=== PATIENT | male | born 1965 | race African-American/Black ===

== ENCOUNTER 2016-09-08 10:11 | Inpatient (IN) | payer OTHER ==
[2016-09-08 10:33] VITALS: BMI 27.6
--- NOTE | 2016-09-08 13:32 | HP ---
COWS - Scale Resting Pulse: 1= [place] 81-100 Sweatin=Flushed/Facial Moisture Restless Observation: 3= Extraneous Movement Pupil Size: 2= Moderately Dilated Bone or Joint Aches: 2= Severe Diffuse Aches Runny Nose/ Eye Tearin= Runny Nose/Eyes GI Upset > 30mins: 3= Vomiting/Diarrhea Tremor Observation: 2= Slight Tremor Visible Yawning Observation: 2= >3x During Session Anxiety or Irritability: 2=Irritable/Anxious Goose Flesh Skin: 0=Smooth Skin COWS Score: 21 CIWA Score - CIWA Score Nausea/Vomitin Muscle Tremors: 3 Anxiety: 3 Agitation: 2 Paroxysmal Sweats: 2 Orientation: 0-Oriented Tacttile Disturbances: 2-Mild Itch/Numbness/Burn Auditory Disturbances: 2-Mild Harshness/Frighten Visual Disturbances: 2-Mild Sensitivity Headache: 2-Mild CIWA-Ar Total Score: 21 Admission ROS BHS - HPI Chief Complaint: I NEED HELP TO STOP USING HEROIN,ALCOHOL AND XANAX Allergies/Adverse Reactions: Allergies Allergy/AdvReac Type Severity Reaction Status Date / Time No Known Allergies Allergy Verified 09/08/16 11:29 History of Present Illness: THIS 51 YEARS OLD MALE WITH HEROIN,ALCOHOL AND XANAX DEPENDENCE,WITHDRAWAL SYMPTOM,LAST DETOX [facility] 4 YEARS AGO SEVERAL ADMISSIONS IN DETOX LONGEST PERIOD 2 YEARS HEPATITIS C 2010 TREATED NICOTINE DEPENDENCE Exam Limitations: No Limitations - Ebola screening Have you traveled outside of the country in the last 21 days: No Have you been sick,other than usual withdrawal symptoms: No - Review of Systems Constitutional: Chills, Diaphoresis, Loss of Appetite, Malaise, Night Sweats, Changes in sleep, Weakness, Unintentional Wgt. Loss EENT: reports: Tearing, Nose Congestion Respiratory: reports: No Symptoms reported Cardiac: reports: Palpitations GI: reports: Diarrhea, Nausea, Vomiting, Abdominal cramping : reports: No Symptoms Reported Musculoskeletal: reports: Back Pain, Joint Pain, Muscle Pain, Joint Stiffness Integumentary: reports: Dryness Neuro: reports: Headache, Tremors Endocrine: reports: No Symptoms Reported Hematology: reports: No Symptoms Reported Psychiatric: reports: No Sypmtoms Reported, Judgement Intact, Mood/Affect Appropiate, Orientated x3, Depressed Patient History - Patient Medical History Hx Anemia: No Hx Asthma: No Hx Chronic Obstructive Pulmonary Disease (COPD): No Hx Cancer: No Hx Cardiac Disorders: No Hx Congestive Heart Failure: No Hx Hypertension: No Hx Hypercholesterolemia: No HX Cerebrovascular Accident: No Hx Seizures: No Hx Dementia: No Hx Diabetes: No Hx Gastrointestinal Disorders: No Hx Liver Disease: No Hx Genitourinary Disorders: No Hx Sexually Transmitted Disorders: No Hx Renal Disease (ESRD): No Hx Thyroid Disease: No Hx Human Immunodeficiency Virus (HIV): No (LAST 2014 NEGATIVE) Hx Hepatitis C: Yes (TREATED SINCE 2009) Hx Depression: Yes Hx Suicide Attempt: Yes (cut left wrist in 2013) Hx Bipolar Disorder: No Hx Schizophrenia: No Other Medical History: NO SUICIDAL,NO HOMICIDAL - Patient Surgical History Past Surgical History: No Hx Neurologic Surgery: No Hx Cataract Extraction: No Hx Cardiac Surgery: No Hx Lung Surgery: No Hx Breast Surgery: No Hx Breast Biopsy: No Hx Abdominal Surgery: No Hx Appendectomy: No Hx Cholecystectomy: No Hx Genitourinary Surgery: No Hx Section: No Hx Orthopedic Surgery: No Anesthesia Reaction: No - PPD History Previous Implant?: Yes Documented Results: Negative w/o proof Implanted On Prior [facility] Admission?: No PPD to be Administered?: Yes - Smoking Cessation Smoking history: Current every day smoker Have you smoked in the past 12 months: Yes Aproximately how many cigarettes per day: 10 Hx Chewing Tobacco Use: No Initiated information on smoking cessation: Yes 'Breaking Loose' booklet given: 09/08/16 - Substance & Tx. History Hx Alcohol Use: Yes Hx Substance Use: Yes Substance Use Type: Alcohol, Cocaine, Heroin Hx Substance Use Treatment: Yes (2012 [facility]) - Substances Abused Heroin Route: Injection Frequency: Daily Amount used: 50 bags Age of first use: 10 Date of Last Use: 09/07/16 Alcohol-akbar Route: Oral Frequency: Daily Amount used: 1 pt. Age of first use: 13 Date of Last Use: 09/07/16 Xanax or Klonopin Route: Oral Frequency: Daily Amount used: 2 mg. Age of first use: 49 Date of Last Use: 09/07/16 Fentanyl patch Route: patch Frequency: 1-3 times last 30 days Amount used: 75 mg. Age of first use: 49 Date of Last Use: 09/01/16 Family Disease History - Family Disease History Family History: Denies Admission Physical Exam BHS - Vital Signs Vital Signs: Vital Signs - 24 hr 09/08/16 10:29 Temperature 97 F L Pulse Rate 84 Respiratory 20 Rate Blood Pressure 148/90 - Physical General Appearance: Yes: Moderate Distress, Tremorous, Irritable, Sweating, Anxious HEENTM: Yes: Normal ENT Inspection, Pharynx Normal, Nasal Congestion Respiratory: Yes: Lungs Clear, Normal Breath Sounds, No Respiratory Distress Neck: Yes: Supple, Trachea in good position Breast: Yes: Within Normal Limits Cardiology: Yes: Within Normal Limits, Regular Rhythm, Regular Rate, S1, S2 Abdominal: Yes: Normal Bowel Sounds, Non Tender, Flat, Soft, Pulsatile Mass Genitourinary: Yes: Within Normal Limits Musculoskeletal: Yes: Back pain, Joint Stiffness, Muscle Pain Extremities: Yes: Within Normal Limits, Normal Range of Motion, Tremors Neurological: Yes: feed management advisor II-XII NML intact, Fully Oriented, Alert, Motor Strength 5/5 Integumentary: Yes: Dry, Track Davis Lymphatic: Yes: Within Normal Limits - Diagnostic (1) Opioid dependence with withdrawal Current Visit: Yes Status: Acute (2) Alcohol dependence with uncomplicated withdrawal Current Visit: Yes Status: Acute (3) Uncomplicated sedative, hypnotic or anxiolytic withdrawal Current Visit: Yes Status: Acute (4) Nicotine dependence Current Visit: Yes Status: Acute (5) Weight loss Current Visit: Yes Status: Acute (6) Hepatitis C Current Visit: Yes Status: Acute Cleared for Admission [facility] - Detox or Rehab [facility] Level of Care: Medically Managed Detox Regimen/Protocol: Methadone/Valium [facility] Breath Alcohol Content Breath Alcohol Content: 0 Urine Drug Screen - Results Drug Screen Negative: No Urine Drug Screen Results: OPI-Opiates, OXY-Oxycodone
[2016-09-08] MEDS ORDERED: MAGNESIUM CITRATE 300 ML BOTTLE PO PRN (14:02)
[2016-09-08] MEDS ORDERED: LOPERAMIDE HCL 2 MG CAPSULE PO PRN (14:02)
[2016-09-08] MEDS ORDERED: diphenhydrAMINE HCL 50 MG CAPSULE PO PRN (14:02)
[2016-09-08] MEDS ORDERED: MAG HYDROX/AL HYDROX/SIMETH 30 ML UNIT-DOSE CUP PO PRN (14:02)
[2016-09-08] MEDS ORDERED: guaiFENesin/D-METHORPHAN HB 10 ML UNIT-DOSE CUPS PO PRN (14:02)
[2016-09-08] MEDS ORDERED: IBUPROFEN 400 MG TABLET (FP) PO PRN (14:02)
[2016-09-08] MEDS ORDERED: MAGNESIUM HYDROX 2400MG/30ML ORAL SUSPENSION 30 ML CUP PO PRN (14:02)
[2016-09-08] MEDS ORDERED: MENTHOL/PHENOL 1 EACH UD MM PRN (14:02)
[2016-09-08] MEDS ORDERED: P-EPHED 60MG/TRIPROLIDI 2.5MG TABLET PO PRN (14:02)
[2016-09-08] MEDS ORDERED: ACETAMINOPHEN 325 MG TABLET (FP) PO PRN (14:02)
[2016-09-08] MEDS ORDERED: diazePAM 5 MG TABLET PO ONE (14:46)
[2016-09-08] MEDS ORDERED: METHADONE HCL 10 MG TABLET (FOR DETOX USE ONLY) PO ONE ×2 (14:48→23:00)
[2016-09-08 14:53] LABS: HIV 1 & 2 AB NEGATIVE; HIV 1 AGp24 NEGATIVE
[2016-09-08] MEDS: NICOTINE 21 MG/24 HOURS TOPICAL PATCH TD SCH (14:56)
[2016-09-08] MEDS: diazePAM 5 MG TABLET PO PRN (17:46)
[2016-09-08 20:13] LABS: URINE APPEARANCE CLEAR; URINE BILIRUBIN NEGATIVE (NEGATIVE); URINE BLOOD NEGATIVE (NEGATIVE); URINE COLOR LTYELLOW; URINE GLUCOSE (UA) NEGATIVE (NEGATIVE); URINE KETONE NEGATIVE (NEGATIVE); URINE LEUK ESTERASE NEGATIVE (NEGATIVE); URINE NITRITE NEGATIVE (NEGATIVE); URINE PROTEIN NEGATIVE (NEGATIVE); URINE UROBILINOGEN NEGATIVE E.U./dl (0.2-1.0)
[2016-09-08] MEDS: diazePAM 5 MG TABLET PO SCH (22:10)
[2016-09-08] MEDS: cloNIDine HCL 0.1 MG TABLET PO SCH (22:10)
[2016-09-08] MEDS: THIAMINE HCL 100 MG TABLET (FP) PO SCH (22:10)
[2016-09-09] MEDS: diazePAM 5 MG TABLET PO SCH ×3 (05:22→22:22)
[2016-09-09] MEDS: CYCLOBENZAPRINE HCL 10 MG TABLET (FP) PO PRN ×2 (05:22→18:05)
[2016-09-09] MEDS: NICOTINE 21 MG/24 HOURS TOPICAL PATCH TD SCH (09:46)
[2016-09-09] MEDS: diazePAM 5 MG TABLET PO PRN ×2 (09:46→18:05)
[2016-09-09] MEDS: PRENATAL VITAMINS W/ FOLIC ACID TABLET (FP) PO SCH (09:46)
[2016-09-09] MEDS: cloNIDine HCL 0.1 MG TABLET PO SCH ×2 (09:46→22:22)
[2016-09-09] MEDS ORDERED: METHADONE HCL 10 MG TABLET (FOR DETOX USE ONLY) PO SCH ×2 (10:00)
[2016-09-09 10:36] LABS: MCH 30.8 pg (25.7-33.7); MCHC 33.8 g/dl (32.0-35.9); MEAN CELL VOLUME 91.1 fl (80-96); MEAN PLT VOLUME 8.4 fl (7.5-11.1); PLATELET COUNT 204 K/MM3 (134-434); RDW 16.2 % (11.9-15.9); WHITE BLOOD COUNT 7.1 K/mm3 (4.0-10.0)
[2016-09-09] MEDS ORDERED: ONDANSETRON *ODT* 4 MG TABLET SL PRN (11:53)
[2016-09-09 12:07] LABS: ALBUMIN 3.7 g/dl (3.4-5.0); ALK PHOS 91 U/L (45-117); ANION GAP 10 (8-16); BILIRUBIN,TOTAL 0.3 mg/dL (0.2-1.0); CALCIUM 8.7 mg/dL (8.5-10.1); CO2 25 mmol/L (21-32); CREATININE 1.1 mg/dL (0.7-1.3); GLUCOSE,RANDOM 132 mg/dL (74-106); SGOT/AST 16 U/L (15-37); SGPT/ALT 19 U/L (12-78); TOT PROT 7.5 g/dl (6.4-8.2)
--- NOTE | 2016-09-09 13:10 | CONSULT ---
[facility] Psychiatric Consult - Data Date of interview: 09/09/16 Admission source: [facility] Identifying data: First admission to [facility] for this 51 y/o male seeking detox treatment for heroin,cocaine,alcohol and benzodiazepine (xanax) dependence.Patient is single,a father of two,domiciled,unemployed and deprived of any source of income. Substance Abuse History: - Smoking Cessation. Smoking history: Current every day smoker. Have you smoked in the past 12 months: Yes. Aproximately how many cigarettes per day: 10. Hx Chewing Tobacco Use: No. Initiated information on smoking cessation: Yes. 'Breaking Loose' booklet given: 09/08/16. - Substance & Tx. History. Hx Alcohol Use: Yes. Hx Substance Use: Yes. Substance Use Type : Alcohol, Cocaine, Heroin. Hx Substance Use Treatment: Yes ([facility]) . - Substances Abused. Heroin. Route: Injection. Frequency: Daily. Amount used: 50 bags. Age of first use: 10. Date of Last Use: 09/07/16. Alcohol-akbar. Route: Oral. Frequency: Daily. Amount used: 1 pt. Age of first use: 13. Date of Last Use: 09/07/16. Xanax or Klonopin. Route: Oral. Frequency: Daily. Amount used: 2 mg. Age of first use: 49. Date of Last Use: 09/07/16. Fentanyl patch. Route: patch. Frequency: 1-3 times last 30 days. Amount used: 75 mg. Age of first use: 49. Date of Last Use: 04/10. Confirmed by patient. Medical History: History of liver disease (hepatitis C). Psychiatric History: History of 5-7 psychiatric hospitalizations as per self- report.Patient is a poor and indifferent historian." I don't know anything about my diagnosis.I don't remember my medications.I don't go to any clinic anyway.I have no idea of these things." Mr Johnson admits to a history of suicide attempt via self-mutilation (wrist-cutting). Physical/Sexual Abuse/Trauma History: Patient denies. Additional Comment: Urine Drug Screen Results: OPI-Opiates, OXY-Oxycodone.Noted. Mental Status Exam - Mental Status Exam Alert and Oriented to: Time, Place, Person Cognitive Function: Good Patient Appearance: Well Groomed Mood: Withdrawn Affect: Mood Congruent Patient Behavior: Cooperative (marginally cooperative) Speech Pattern: Clear Voice Loudness: Normal Thought Process: Goal Oriented Thought Disorder: Not Present Hallucinations: Denies Suicidal Ideation: Denies Homicidal Ideation: Denies Insight/Judgement: Poor Sleep: Fair Appetite: Good Muscle strength/Tone: Normal Gait/Station: Normal Psychiatric Findings - Problem List (Energy 1, 2,3) (1) Alcohol dependence with uncomplicated withdrawal Current Visit: Yes Status: Acute (2) Opioid dependence with withdrawal Current Visit: Yes Status: Acute (3) Uncomplicated sedative, hypnotic or anxiolytic withdrawal Current Visit: Yes Status: Acute (4) Nicotine dependence Current Visit: Yes Status: Acute (5) Substance induced mood disorder Current Visit: Yes Status: Acute (6) Hepatitis C Current Visit: Yes Status: Acute - Initial Treatment Plan Initial Treatment Plan: Psychoeducation.Detoxification.Observation.
--- NOTE | 2016-09-09 15:26 | PN ---
S CIWA - CIWA Score Nausea/Vomitin Muscle Tremors: 2 Anxiety: 2 Agitation: 1-Slight > Activity Paroxysmal Sweats: 3 Orientation: 1-Uncertain about Date Tacttile Disturbances: 2-Mild Itch/Numbness/Burn Auditory Disturbances: 2-Mild Harshness/Frighten Visual Disturbances: 0-None Headache: 0-None Present CIWA-Ar Total Score: 16 BHS COWS - Scale Resting Pulse: 1= [place] 81-100 Sweatin=Flushed/Facial Moisture Restless Observation: 1= Difficult to Sit Still Pupil Size: 0= Normal to Room Light Bone or Joint Aches: 2= Severe Diffuse Aches Runny Nose/ Eye Tearin= Nasal Congestion GI Upset > 30mins: 2= Nausea/Diarrhea Tremor Observation of Outstretched Hands: 2= Slight Tremor Visible Yawning Observation: 1= 1-2x During Session Anxiety or Irritability: 2=Irritable/Anxious Goose Flesh Skin: 0=Smooth Skin COWS Score: 14 BHS Progress Note (SOAP) Subjective: Nausea, Sweating, Interrupted Sleep, Body Aches, Tremors. Objective: PT. A & O X 2 (DISORIENTED ABOUT DAY / DATE). 09/09/16 15:25 Vital Signs Temperature 97.1 F L 09/09/16 13:24 Pulse Rate 84 09/09/16 13:24 Respiratory Rate 18 09/09/16 13:24 Blood Pressure 111/78 09/09/16 13:24 O2 Sat by Pulse Oximetry (%) Laboratory Last Values WBC 7.1 K/mm3 (4.0-10.0) 09/09/16 06:00 RBC 4.47 M/mm3 (4.00-5.60) 09/09/16 06:00 Hgb 13.8 GM/dL (11.7-16.9) 09/09/16 06:00 Hct 40.7 % (35.4-49) 09/09/16 06:00 MCV 91.1 fl (80-96) 09/09/16 06:00 MCHC 33.8 g/dl (32.0-35.9) 09/09/16 06:00 RDW 16.2 % (11.9-15.9) H 09/09/16 06:00 Plt Count 204 K/MM3 (134-434) 09/09/16 06:00 MPV 8.4 fl (7.5-11.1) 09/09/16 06:00 Sodium 139 mmol/L (136-145) 09/09/16 06:00 Potassium 3.9 mmol/L (3.5-5.1) 09/09/16 06:00 Chloride 104 mmol/L (98-107) 09/09/16 06:00 Carbon Dioxide 25 mmol/L (21-32) 09/09/16 06:00 Anion Gap 10 (8-16) 09/09/16 06:00 BUN 12 mg/dL (7-18) 09/09/16 06:00 Creatinine 1.1 mg/dL (0.7-1.3) 09/09/16 06:00 Creat Clearance w eGFR > 60 (>60) 09/09/16 06:00 Random Glucose 132 mg/dL (74-106) H 09/09/16 06:00 Calcium 8.7 mg/dL (8.5-10.1) 09/09/16 06:00 Total Bilirubin 0.3 mg/dL (0.2-1.0) 09/09/16 06:00 AST 16 U/L (15-37) 09/09/16 06:00 ALT 19 U/L (12-78) 09/09/16 06:00 Alkaline Phosphatase 91 U/L (45-117) 09/09/16 06:00 Total Protein 7.5 g/dl (6.4-8.2) 09/09/16 06:00 Albumin 3.7 g/dl (3.4-5.0) 09/09/16 06:00 Urine Color Ltyellow 09/08/16 19:36 Urine Appearance Clear 09/08/16 19:36 Urine pH 7.0 (5.0-8.0) 09/08/16 19:36 Ur Specific [place] 1.009 (1.001-1.035) 09/08/16 19:36 Urine Protein Negative (NEGATIVE) 09/08/16 19:36 Urine Glucose (UA) Negative (NEGATIVE) 09/08/16 19:36 Urine Ketones Negative (NEGATIVE) 09/08/16 19:36 Urine Blood Negative (NEGATIVE) 09/08/16 19:36 Urine Nitrite Negative (NEGATIVE) 09/08/16 19:36 Urine Bilirubin Negative (NEGATIVE) 09/08/16 19:36 Urine Urobilinogen Negative E.U./dl (0.2-1.0) 09/08/16 19:36 Ur Leukocyte Esterase Negative (NEGATIVE) 09/08/16 19:36 HIV 1&2 Antibody Screen Negative 09/08/16 13:00 HIV P24 Antigen Negative 09/08/16 13:00 LABS NOTED. Assessment: 09/09/16 15:26 WITHDRAWAL SYMPTOMS. Plan: CONTINUE DETOX. BGM ACBK TOMORROW FOR ELEVATED RANDOM GLUCOSE LEVEL ON ADMISSION. ADVISED PATIENT TO FOLLOW-UP WITH OTR [facility] TRUCK DRIVER / REHAB MEDICAL PROVIDER AFTER DISCHARGE FROM DETOX FOR GENERAL MEDICAL ASSESSMENT AND FOR ANY ABNORMAL ADMISSION LAB VALUES.
[2016-09-09] MEDS: THIAMINE HCL 100 MG TABLET (FP) PO SCH (22:22)
[2016-09-09] MEDS: hydrOXYzine PAMOATE 25 MG CAPSULE (FP) PO PRN (22:26)
[2016-09-10] MEDS: diazePAM 5 MG TABLET PO PRN ×3 (04:43→17:27)
[2016-09-10] MEDS: CYCLOBENZAPRINE HCL 10 MG TABLET (FP) PO PRN (04:44)
[2016-09-10] MEDS ORDERED: METHADONE HCL 5 MG TABLET (FOR DETOX USE ONLY) PO SCH (10:00)
[2016-09-10] MEDS: METHADONE HCL 5 MG TABLET (FOR DETOX USE ONLY) PO SCH (10:23)
[2016-09-10] MEDS: diazePAM 5 MG TABLET PO SCH ×2 (10:23→22:32)
[2016-09-10] MEDS: NICOTINE 21 MG/24 HOURS TOPICAL PATCH TD SCH (10:24)
[2016-09-10] MEDS: PRENATAL VITAMINS W/ FOLIC ACID TABLET (FP) PO SCH (10:24)
[2016-09-10] MEDS: cloNIDine HCL 0.1 MG TABLET PO SCH ×2 (10:24→22:32)
--- NOTE | 2016-09-10 11:21 | PN ---
S CIWA - CIWA Score Nausea/Vomitin Muscle Tremors: 4-Moderate,w/Arms Extend Anxiety: 4-Mod. Anxious/Guarded Agitation: 4-Moderately Restless Paroxysmal Sweats: 3 Orientation: 0-Oriented Tacttile Disturbances: 1-Very Mild Itch/Numbness Auditory Disturbances: 0-None Visual Disturbances: 0-None Headache: 2-Mild CIWA-Ar Total Score: 20 BHS COWS - Scale Resting Pulse: 1= [place] 81-100 Sweatin=Flushed/Facial Moisture Restless Observation: 3= Extraneous Movement Pupil Size: 0= Normal to Room Light Bone or Joint Aches: 2= Severe Diffuse Aches Runny Nose/ Eye Tearin= Runny Nose/Eyes GI Upset > 30mins: 2= Nausea/Diarrhea Tremor Observation of Outstretched Hands: 2= Slight Tremor Visible Yawning Observation: 0= None Anxiety or Irritability: 4=Extreme Anxiety Goose Flesh Skin: 0=Smooth Skin COWS Score: 18 BHS Progress Note (SOAP) Subjective: Anxious, restless, sweating, tremor, interrupted sleep, body aches, back pain, chills Objective: 09/10/16 11:20 Last Vital Signs Temp Pulse Resp BP Pulse Ox 96.6 F L 73 18 114/78 09/10/16 06:37 09/10/16 06:37 09/10/16 06:37 09/10/16 06:37 Laboratory Tests 09/08/16 09/08/16 09/09/16 13:00 19:36 06:00 WBC 7.1 RBC 4.47 Hgb 13.8 Hct 40.7 MCV 91.1 MCHC 33.8 RDW 16.2 H Plt Count 204 MPV 8.4 Sodium Potassium Chloride Carbon Dioxide Anion Gap BUN Creatinine Creat Clearance w eGFR POC Glucometer Random Glucose Calcium Total Bilirubin AST ALT Alkaline Phosphatase Total Protein Albumin Urine Color Ltyellow Urine Appearance Clear Urine pH 7.0 Ur Specific [place] 1.009 Urine Protein Negative Urine Glucose (UA) Negative Urine Ketones Negative Urine Blood Negative Urine Nitrite Negative Urine Bilirubin Negative Urine Urobilinogen Negative Ur Leukocyte Esterase Negative RPR Titer HIV 1&2 Antibody Screen Negative HIV P24 Antigen Negative 09/09/16 09/09/16 09/10/16 06:00 06:00 04:40 WBC RBC Hgb Hct MCV MCHC RDW Plt Count MPV Sodium 139 Potassium 3.9 Chloride 104 Carbon Dioxide 25 Anion Gap 10 BUN 12 Creatinine 1.1 Creat Clearance w eGFR > 60 POC Glucometer 107 Random Glucose 132 H Calcium 8.7 Total Bilirubin 0.3 AST 16 ALT 19 Alkaline Phosphatase 91 Total Protein 7.5 Albumin 3.7 Urine Color Urine Appearance Urine pH Ur Specific [place] Urine Protein Urine Glucose (UA) Urine Ketones Urine Blood Urine Nitrite Urine Bilirubin Urine Urobilinogen Ur Leukocyte Esterase RPR Titer Nonreactive HIV 1&2 Antibody Screen HIV P24 Antigen Labs noted: serum glucose 132 mg/dl Assessment: 09/10/16 11:21 Withdrawal symptoms Noted with hyperglycemia Plan: Continue detox Hyperglycemia: continue finger stick glucose, repeat BMP, send HbA1c, consider starting oral antidiabetic agent if warranted
--- NOTE | 2016-09-10 11:41 | EKG ---
Test Reason : Blood Pressure : / mmHG Vent. Rate : 078 BPM Atrial Rate : 078 BPM P-R Int : 144 ms QRS Dur : 110 ms QT Int : 390 ms P-R-T Axes : 033 -24 036 degrees QTc Int : 444 ms NORMAL SINUS RHYTHM NORMAL ECG NO PREVIOUS ECGS AVAILABLE Confirmed by TRISTAN KIRBY MD ([id number]) on 09/10/2016 11:40:30 AM Referred By: Kyler Hewitt Confirmed By:TRISTAN KIRBY MD
[2016-09-10] MEDS: INSULIN SLIDING SCALE (NOVOLOG) 1 VIAL SQ SCH (16:51)
[2016-09-10] MEDS: THIAMINE HCL 100 MG TABLET (FP) PO SCH (22:32)
[2016-09-11] MEDS: diazePAM 5 MG TABLET PO PRN (05:40)
[2016-09-11] MEDS: CYCLOBENZAPRINE HCL 10 MG TABLET (FP) PO PRN ×2 (05:40→14:49)
[2016-09-11] MEDS: INSULIN SLIDING SCALE (NOVOLOG) 1 VIAL SQ SCH ×3 (07:12→16:39)
[2016-09-11] MEDS: PRENATAL VITAMINS W/ FOLIC ACID TABLET (FP) PO SCH (10:11)
[2016-09-11] MEDS: METHADONE HCL 5 MG TABLET (FOR DETOX USE ONLY) PO SCH (10:11)
[2016-09-11] MEDS: NICOTINE 21 MG/24 HOURS TOPICAL PATCH TD SCH (10:11)
[2016-09-11] MEDS: diazePAM 5 MG TABLET PO SCH ×2 (10:11→22:09)
[2016-09-11] MEDS: cloNIDine HCL 0.1 MG TABLET PO SCH ×2 (10:12→23:20)
[2016-09-11 10:49] LABS: CALCIUM 8.8 mg/dL (8.5-10.1)
--- NOTE | 2016-09-11 13:31 | PN ---
BHS Progress Note (SOAP) Subjective: Sweating,interrupted sleep,restless. Objective: 09/11/16 13:30 Vital Signs - 8 hr 09/11/16 09/11/16 09/11/16 06:24 09:50 13:21 Temperature 97.0 F L 98.4 F 96 F L Pulse Rate 81 87 90 Respiratory 18 18 20 Rate Blood Pressure 99/73 98/67 117/71 Laboratory Tests 09/08/16 09/08/16 09/09/16 13:00 19:36 06:00 WBC 7.1 RBC 4.47 Hgb 13.8 Hct 40.7 MCV 91.1 MCHC 33.8 RDW 16.2 H Plt Count 204 MPV 8.4 Sodium Potassium Chloride Carbon Dioxide Anion Gap BUN Creatinine Creat Clearance w eGFR POC Glucometer Random Glucose Hemoglobin A1c % Calcium Total Bilirubin AST ALT Alkaline Phosphatase Total Protein Albumin Urine Color Ltyellow Urine Appearance Clear Urine pH 7.0 Ur Specific [place] 1.009 Urine Protein Negative Urine Glucose (UA) Negative Urine Ketones Negative Urine Blood Negative Urine Nitrite Negative Urine Bilirubin Negative Urine Urobilinogen Negative Ur Leukocyte Esterase Negative RPR Titer HIV 1&2 Antibody Screen Negative HIV P24 Antigen Negative 09/09/16 09/09/16 09/10/16 06:00 06:00 04:40 WBC RBC Hgb Hct MCV MCHC RDW Plt Count MPV Sodium 139 Potassium 3.9 Chloride 104 Carbon Dioxide 25 Anion Gap 10 BUN 12 Creatinine 1.1 Creat Clearance w eGFR > 60 POC Glucometer 107 Random Glucose 132 H Hemoglobin A1c % Calcium 8.7 Total Bilirubin 0.3 AST 16 ALT 19 Alkaline Phosphatase 91 Total Protein 7.5 Albumin 3.7 Urine Color Urine Appearance Urine pH Ur Specific [place] Urine Protein Urine Glucose (UA) Urine Ketones Urine Blood Urine Nitrite Urine Bilirubin Urine Urobilinogen Ur Leukocyte Esterase RPR Titer Nonreactive HIV 1&2 Antibody Screen HIV P24 Antigen 09/10/16 09/11/16 09/11/16 16:27 05:39 07:40 WBC RBC Hgb Hct MCV MCHC RDW Plt Count MPV Sodium Potassium Chloride Carbon Dioxide Anion Gap BUN Creatinine Creat Clearance w eGFR POC Glucometer 117 103 Random Glucose Hemoglobin A1c % 5.9 Calcium Total Bilirubin AST ALT Alkaline Phosphatase Total Protein Albumin Urine Color Urine Appearance Urine pH Ur Specific [place] Urine Protein Urine Glucose (UA) Urine Ketones Urine Blood Urine Nitrite Urine Bilirubin Urine Urobilinogen Ur Leukocyte Esterase RPR Titer HIV 1&2 Antibody Screen HIV P24 Antigen 09/11/16 09/11/16 07:40 11:32 WBC RBC Hgb Hct MCV MCHC RDW Plt Count MPV Sodium 141 Potassium 4.0 Chloride 106 Carbon Dioxide 22 Anion Gap 13 BUN 9 D Creatinine 1.0 Creat Clearance w eGFR POC Glucometer 101 Random Glucose 94 D Hemoglobin A1c % Calcium 8.8 Total Bilirubin AST ALT Alkaline Phosphatase Total Protein Albumin Urine Color Urine Appearance Urine pH Ur Specific [place] Urine Protein Urine Glucose (UA) Urine Ketones Urine Blood Urine Nitrite Urine Bilirubin Urine Urobilinogen Ur Leukocyte Esterase RPR Titer HIV 1&2 Antibody Screen HIV P24 Antigen labs noted Assessment: 09/11/16 13:30 Withdrawal sx. Plan: Continue detox
[2016-09-11] MEDS: THIAMINE HCL 100 MG TABLET (FP) PO SCH (22:09)
[2016-09-11] MEDS: ZOLPIDEM TARTRATE 10 MG TABLET (PARK CARE ONLY) PO PRN (22:09)
[2016-09-12] MEDS: CYCLOBENZAPRINE HCL 10 MG TABLET (FP) PO PRN ×3 (06:01→22:05)
[2016-09-12] MEDS: hydrOXYzine PAMOATE 25 MG CAPSULE (FP) PO PRN ×2 (06:01→17:56)
[2016-09-12] MEDS: INSULIN SLIDING SCALE (NOVOLOG) 1 VIAL SQ SCH ×3 (07:02→16:58)
[2016-09-12] MEDS ORDERED: diazePAM 5 MG TABLET PO SCH (10:00)
[2016-09-12] MEDS ORDERED: METHADONE HCL 10 MG TABLET (FOR DETOX USE ONLY) PO SCH ×2 (10:00)
[2016-09-12] MEDS: cloNIDine HCL 0.1 MG TABLET PO SCH ×2 (10:10→22:05)
[2016-09-12] MEDS: PRENATAL VITAMINS W/ FOLIC ACID TABLET (FP) PO SCH (10:10)
[2016-09-12] MEDS: NICOTINE 21 MG/24 HOURS TOPICAL PATCH TD SCH (10:10)
--- NOTE | 2016-09-12 11:03 | PN ---
BHS Progress Note (SOAP) Subjective: BODY ACHE, ANXIETY,SWEATS. Objective: 09/12/16 11:02 Vital Signs Temperature 98.2 F 09/12/16 10:52 Pulse Rate 87 09/12/16 10:52 Respiratory Rate 18 09/12/16 10:52 Blood Pressure 106/78 09/12/16 10:52 O2 Sat by Pulse Oximetry (%) Assessment: 09/12/16 11:02 WITHDRAWAL SX Plan: CONTINUE DETOX
[2016-09-12] MEDS: ZOLPIDEM TARTRATE 10 MG TABLET (PARK CARE ONLY) PO PRN (22:05)
[2016-09-12] MEDS: THIAMINE HCL 100 MG TABLET (FP) PO SCH (22:05)
[2016-09-13] MEDS ORDERED: METHADONE HCL 5 MG TABLET (FOR DETOX USE ONLY) PO SCH (06:00)
[2016-09-13] MEDS: CYCLOBENZAPRINE HCL 10 MG TABLET (FP) PO PRN (06:18)
[2016-09-13 06:33] VITALS: BP 91/65; PULSE 87; TEMP 96.8
[2016-09-13] MEDS: INSULIN SLIDING SCALE (NOVOLOG) 1 VIAL SQ SCH (07:18)
--- NOTE | 2016-09-13 08:51 | DS ---
[facility] Detox Discharge Summary Admission Date: 09/08/16 Discharge Date: 09/13/16 - History Present History: Alcohol Dependence, Opioid Dependence Additional Comments: DETOX COMPLETED.ALERT O X 3. NAD Pertinent Past History: HEP C DEPRESSION - Physical Exam Results Vital Signs: Vital Signs Temperature 96.8 F L 09/13/16 06:33 Pulse Rate 87 09/13/16 06:33 Respiratory Rate 16 09/13/16 06:33 Blood Pressure 91/65 09/13/16 06:33 O2 Sat by Pulse Oximetry (%) Pertinent Admission Physical Exam Findings: R[place] SX - Treatment Hospital Course: Detox Protocol Followed, Detoxed Safely, Responded well, Discharged Condition Good - Medication Discharge Medications: Ambulatory Orders NK [No Known Home Medication] 09/08/16 - Diagnosis (1) Alcohol dependence with uncomplicated withdrawal Current Visit: Yes Status: Acute (2) Hepatitis C Current Visit: Yes Status: Chronic Qualifiers: Viral hepatitis chronicity: chronic (3) Nicotine dependence Current Visit: Yes Status: Acute Qualifiers: Nicotine product type: cigarettes Substance use status: in withdrawal Qualified Code(s): F17.213 - Nicotine dependence, cigarettes, with withdrawal (4) Opioid dependence with withdrawal Current Visit: Yes Status: Acute (5) Uncomplicated sedative, hypnotic or anxiolytic withdrawal Current Visit: Yes Status: Acute - AMA Did Patient Leave Against Medical Advice: No
== END 2016-09-13 09:25 | disposition home or self-care (01) | DRG 773 ==
LOC: YASAS 10:11 → Y3N 12:03
PROVIDERS: ADMIT Internal Medicine Addiction Medicine; ATTEND Internal Medicine Addiction Medicine
PROC: HZ2ZZZZ Detoxification Services for Substance Abuse Treatment (ICD-10-PCS; principal; 2016-09-08)
DX: F11.23 Opioid dependence with withdrawal (principal); F13.230 Sedative, hypnotic or anxiolytic dependence with withdrawal, uncomplicated; F10.230 Alcohol dependence with withdrawal, uncomplicated; F17.210 Nicotine dependence, cigarettes, uncomplicated; F19.24 Other psychoactive substance dependence with psychoactive substance-induced mood disorder; B18.2 Chronic viral hepatitis C; R73.9 Hyperglycemia, unspecified; Z91.5 Personal history of self-harm; Z87.898 Personal history of other specified conditions
CPT/HCPCS: 36415; 80048; 80053; 81003; 83036; 85027; 86593; 87389; 93005; 93010